=== PATIENT | female | born 1970 | race Caucasian/White ===

== ENCOUNTER 2016-05-27 06:04 | Emergency (ER) | payer OTHER ==
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
--- NOTE | 2016-05-27 07:45 | Diag Imaging Result Document ---
PROCEDURE NAME: CERVICAL SPINE COMPLETE - 05/27/2016 CERVICAL SPINE AP AND LATERAL WITH OBLIQUES, SIX VIEWS: FINDINGS: There has been prior fusion with an anterior plate and screws at C5-6. No precervical soft tissue swelling. No subluxation. No prominent bone spurring. IMPRESSION: Prior fusion at C5-6.
[2016-05-27 07:52] VITALS: BP 109/81
== END 2016-05-27 07:53 | disposition home or self-care (01) ==
LOC: EDBD → ED 06:04
DX: S16.1XXA Strain of muscle, fascia and tendon at neck level, initial encounter (principal); M54.2 Cervicalgia; V49.40XA Driver injured in collision with unspecified motor vehicles in traffic accident, initial encounter; F17.210 Nicotine dependence, cigarettes, uncomplicated; Z71.6 Tobacco abuse counseling; Z79.899 Other long term (current) drug therapy
CPT/HCPCS: 72050; 99283